=== PATIENT | female | born 1990 | race Caucasian/White ===

== ENCOUNTER 2017-10-06 00:04 | Emergency (ER) | payer OTHER ==
[~2017-10-06] VITALS: Ht 162.6 cm; Wt 69.0 kg
[2017-10-06 01:21] VITALS: BP 110/68
== END 2017-10-06 01:20 | disposition short-term general hospital (02) ==
LOC: M.ERS 00:04
DX: O46.92 Antepartum hemorrhage, unspecified, second trimester (principal); O99.332 Smoking (tobacco) complicating pregnancy, second trimester; Z3A.24 24 weeks gestation of pregnancy; Z88.0 Allergy status to penicillin; Z88.5 Allergy status to narcotic agent

== ENCOUNTER 2018-08-10 14:47 | Emergency (ER) | payer OTHER ==
[~2018-08-10] VITALS: Ht 162.6 cm; Wt 62.1 kg
[2018-08-10 16:18] VITALS: BP 101/58
== END 2018-08-10 16:18 | disposition home or self-care (01) ==
LOC: M.ERS 14:47
DX: M79.18 Myalgia, other site (principal); F17.210 Nicotine dependence, cigarettes, uncomplicated; Z98.890 Other specified postprocedural states; Z88.1 Allergy status to other antibiotic agents; Z88.5 Allergy status to narcotic agent; V49.49XA Driver injured in collision with other motor vehicles in traffic accident, initial encounter; Y93.89 Activity, other specified; Y92.89 Other specified places as the place of occurrence of the external cause; Y99.8 Other external cause status